=== PATIENT | male | born 1960 | race Caucasian/White ===

== ENCOUNTER 2021-07-08 12:50 | Emergency (ER) | payer MEDICARE, MEDICAID ==
[~2021-07-08] VITALS: Ht 162.6 cm; Wt 59.1 kg
[2021-07-08 13:11] VITALS: BP 170/76
== END 2021-07-08 16:24 | disposition home or self-care (01) ==
LOC: M ED 12:50 → EDBD 12:50 → M ED 16:24
DX: F19.10 Other psychoactive substance abuse, uncomplicated (principal); F17.200 Nicotine dependence, unspecified, uncomplicated

== ENCOUNTER 2022-03-25 06:03 | Day surgery (SDC) | payer MEDICARE, MEDICAID ==
[~2022-03-25] VITALS: Ht 165.1 cm; Wt 63.7 kg
[~2022-03-25 06:03] MED LIST: CYCLOPENTOLATE 1% OPHTH SOLN 2ML BTL OD SCH; GABA-1171 PO; OFLOXACIN 0.3 % (OCUFLOX) OPTH SOL 5ML OD SCH; PHENYLEPHRINE 2.5% OPHTH SOL 2ML OD SCH; PROPARACAINE 0.5% OPHTH SOL 15ML OD ONE; TRAM50TA2 PO; TROPICAMIDE 1% OPHTH SOLN 15ML OD SCH
[2022-03-25] MEDS ORDERED: LIDOCAINE 1% SDV 5ML VIAL As Ordered ONE (06:43)
[2022-03-25] MEDS ORDERED: CEFUROXIME 1MG/0.1ML INTRACAMERAL INJ As Ordered ONE (06:43)
[2022-03-25] MEDS ORDERED: fentaNYL 100 MCG/2 ML INJECTION As Ordered ONE (07:47)
[2022-03-25] MEDS ORDERED: MIDAZOLAM INJ 2MG/2ML VIAL As Ordered ONE (07:47)
[2022-03-25] MEDS ORDERED: TRYPAN BLUE 0.06 % 2.25 ML OPHTH SYR (VISIONBLUE) As Ordered ONE (07:55)
[2022-03-25] MEDS ORDERED: TRIAMCINOLONE ACETONIDE SUSP 40MG/ML 1ML VIAL As Ordered ONE (08:25)
[2022-03-25] MEDS ORDERED: TOBRADEX OPHTH OINT 3.5 GM As Ordered ONE (08:56)
[2022-03-25] MEDS ORDERED: propofoL 200 MG/20 ML VIAL As Ordered ONE (09:18)
[2022-03-25 09:20] VITALS: BP 127/71
== END 2022-03-25 09:25 | disposition home or self-care (01) ==
LOC: M SDC 06:03
PROVIDERS: ATTEND Ophthalmology
DX: H25.11 Age-related nuclear cataract, right eye (principal); F17.210 Nicotine dependence, cigarettes, uncomplicated; Z79.899 Other long term (current) drug therapy
CPT/HCPCS: 66984; 92015; J0697; J2250; J3010